=== PATIENT | female | born 1990 | race Caucasian/White ===

== ENCOUNTER → 2018-04-03 | Outpatient (CLI) | payer BC ==
[~2018-04-03] MED LIST: IBUPROFEN200 M2 PO
== END ==
LOC: CAT 15:03
DX: S09.90XA Unspecified injury of head, initial encounter (principal); R51 Headache; F32.9 Major depressive disorder, single episode, unspecified; X58.XXXA Exposure to other specified factors, initial encounter; Y93.89 Activity, other specified; Y92.89 Other specified places as the place of occurrence of the external cause; Y99.8 Other external cause status; Z68.27 Body mass index [BMI] 27.0-27.9, adult

== ENCOUNTER 2019-04-29 19:19 | Emergency (ER) | payer OTHER ==
[~2019-04-29] VITALS: Ht 162.6 cm; Wt 56.7 kg
[2019-04-29] MEDS ORDERED: BUTALBIT-ACETA1 EACH PO (19:31)
[2019-04-29] MEDS ORDERED: DULOXETINE HCL60 MG PO (19:31)
[2019-04-29] MEDS ORDERED: ADDERALL 20 MG20 MG PO (19:32)
[2019-04-29] MEDS ORDERED: TRAMADOL 50 MG50 MG PO (19:32)
[2019-04-29] MEDS ORDERED: ZUPLENZ4 MG PO (19:33)
[2019-04-29] MEDS ORDERED: TOPAMAX100 MG PO (19:34)
[2019-04-29] MEDS ORDERED: CLONAZEPAM 0.50.5 M1 PO (19:35)
[2019-04-29] MEDS ORDERED: BENTYL 10 MG CA10 M1 PO (19:36)
[2019-04-29] MEDS ORDERED: LINZESS145 MCG PO (19:36)
[2019-04-29 21:22] VITALS: BP 119/62
== END 2019-04-29 21:24 | disposition home or self-care (01) ==
LOC: ER 19:19
DX: G43.909 Migraine, unspecified, not intractable, without status migrainosus (principal); K58.1 Irritable bowel syndrome with constipation; F41.9 Anxiety disorder, unspecified; F32.9 Major depressive disorder, single episode, unspecified; F90.9 Attention-deficit hyperactivity disorder, unspecified type

== ENCOUNTER 2019-06-18 03:03 | Emergency (ER) | payer OTHER ==
[~2019-06-18] VITALS: Ht 162.6 cm; Wt 56.7 kg
[~2019-06-18 03:03] MED LIST changes: +ADDERALL 20 MG20 MG PO; +BENTYL 10 MG CA10 M1 PO; +BUTALBIT-ACETA1 EACH PO; +CLONAZEPAM 0.50.5 M1 PO; +DULOXETINE HCL60 MG PO; +LINZESS145 MCG PO; +TOPAMAX100 MG PO; +TRAMADOL 50 MG50 MG PO; +ZUPLENZ4 MG PO
[2019-06-18 03:44] LABS: URINE BILIRUBIN NEGATIVE (Negative); URINE BLOOD NEGATIVE (Negative); URINE CLARITY CLEAR; URINE COLOR YELLOW; URINE GLUCOSE-RANDOM* NEGATIVE (Negative); URINE KETONES NEGATIVE (Negative); URINE LEUKOCYTES-REFLEX TRACE (Negative); URINE NITRITE-REFLEX NEGATIVE (Negative); URINE PROTEIN (DIPSTICK) NEGATIVE (Negative); URINE UROBILINOGEN 0.2 E.U./dl (0.2-1.0)
[2019-06-18 04:08] LABS: ANION GAP 9 mmol/L (7-16); BUN 11 mg/dL (7-18); CALCIUM 8.7 mg/dL (8.5-10.1); CHLORIDE 102 mmol/L (98-107); CO2 27 mmol/L (21-32); CREATININE 0.7 mg/dL (0.6-1.0); GLUCOSE 94 mg/dL (74-106); POTASSIUM 3.9 mmol/L (3.5-5.1); SODIUM 138 mmol/L (136-145)
[2019-06-18 04:11] LABS: ABSOLUTE NEUTROPHILS 8.3 thou/uL (1.4-8.2); BASOPHILS 0.3 % (0.0-2.0); EOSINOPHILS 1.2 % (0.0-3.0); HEMATOCRIT 30.9 % (37.0-47.0); HEMOGLOBIN 10.5 gm/dL (12.0-15.0); LYMPHOCYTES 12.4 % (24.0-44.0); MCH 29.8 pg (26.0-34.0); MCHC 33.8 g/dL (28.0-37.0); MCV 88.2 fL (80.0-100.0); MONOCYTES 4.7 % (1.0-8.0); PLATELET COUNT 261 thou/uL (150-400); POLYS 81.4 % (36.0-66.0); RBC 3.51 mil/uL (4.20-5.00); WBC 10.2 thou/uL (4.0-11.0)
[2019-06-18 04:14] LABS: ALBUMIN 3.6 g/dL (3.4-5.0); DIRECT BILIRUBIN < 0.1 mg/dL (<0.1-0.2); LIPASE 63 U/L (73-393); SGOT 33 U/L (15-37); SGPT 34 U/L (30-65); TOTAL BILIRUBIN 0.4 mg/dL (<0.1-1.0)
[2019-06-18] MEDS ORDERED: ZOFRAN ODT4 MG PO (06:20)
[2019-06-18] MEDS ORDERED: MOBIC15 MG PO (06:20)
[2019-06-18 06:31] VITALS: BP 105/45
== END 2019-06-18 06:32 | disposition home or self-care (01) ==
LOC: ER 03:03
PROVIDERS: Emergency Medicine
DX: R10.11 Right upper quadrant pain (principal); G43.909 Migraine, unspecified, not intractable, without status migrainosus; F32.9 Major depressive disorder, single episode, unspecified; F41.9 Anxiety disorder, unspecified